=== PATIENT | male | born 1955 | race Caucasian/White ===

== ENCOUNTER 2023-11-17 10:36 | Emergency (ER) | payer MEDICARE, OTHER, SELFPAY ==
[2023-11-17 10:37] VITALS: BP 137/69; PULSE 74; RESP 14; TEMP 36.7; O2SAT 97; BMI 24.3
--- NOTE | 2023-11-17 10:44 | DI.RAD.S_ITS ---
PROCEDURE: XR FOOT LT MIN 3V INDICATIONS: foot/ankle injury last night TECHNIQUE: 3 views of the foot were acquired. COMPARISON: None. FINDINGS: Bones: No fractures or dislocations. No suspicious bony lesions. Soft tissues: No tibiotalar joint effusion. Achilles tendon appears normal. IMPRESSION: No acute bony abnormality. Dictated by: Nesha Myers MD, PhD on 11/17/2023 at 12:03 Approved by: Nesha Myers MD, PhD on 11/17/2023 at 12:03
--- NOTE | 2023-11-17 10:44 | DI.RAD.S_ITS ---
PROCEDURE: XR ANKLE LT MIN 3V INDICATIONS: foot/ankle injury last night TECHNIQUE: 3 views of the ankle were acquired. COMPARISON: None. FINDINGS: Bones: No fractures or dislocations. Ankle mortise is normally aligned. No suspicious bony lesions. Plantar calcaneal bone spur. Soft tissues: No tibiotalar joint effusion. Achilles tendon appears normal. Soft tissue swelling is noted and ligamentous injury cannot be excluded. IMPRESSION: No acute bony abnormality or significant effusion. Dictated by: Nesha Myers MD, PhD on 11/17/2023 at 12:03 Approved by: Nesha Myers MD, PhD on 11/17/2023 at 12:04
[2023-11-17] MEDS: KETOROLAC 30 MG/ML VIAL IM (11:59)
--- NOTE | 2023-11-17 12:21 | ED_ITS ---
HPI - Extremity Injury (Lower) <Silvano Donovan PA-C - Last Filed: 11/17/23 12:40> General Chief Complaint: Extremity Injury, Lower Stated Complaint: twisted lt ankle stepped wrong Time Seen by Provider: 11/17/23 11:19 Source: patient Mode of arrival: Ambulatory History of Present Illness HPI Narrative: 68-year-old male with past medical history lower back pain with numbness to the left foot presents to the ED status post a left ankle injury sustained yesterday. Patient states that he has baseline numbness in the big toe and 2nd toe due to his lower back pain, however yesterday he did not realize that his foot had fallen asleep, his ankle twisted when he tried to stand up and bear weight on it. Patient states he has not been able to bear weight and walk on it due to the pain since then. No new numbness, tingling, weakness. Patient has some crutches that he brought with him for ambulation. Related Data Allergies Allergy/AdvReac Type Severity Reaction Status Date / Time No Known Drug Allergies Allergy Verified 11/17/23 10:45 Review of Systems <Silvano Donovan PA-C - Last Filed: 11/17/23 12:40> Constitutional Constitutional: Denies chills, Denies fatigue, Denies fever(s), Denies frequent falls, Denies lethargy and Denies weakness Eyes Eyes: Denies change in vision, Denies eye discharge, Denies irritation and Denies loss of vision ENT Ears, Nose, Mouth, and Throat: Denies change in voice, Denies dizziness, Denies neck pain, Denies sore throat and Denies throat swelling Cardiovascular Cardiovascular: Denies chest pain, Denies irregular heart rhythm, Denies lightheadedness, Denies palpitations, Denies dyspnea, Denies dyspnea on exertion and Denies orthopnea Respiratory Respiratory: Denies cough, Denies dyspnea, Denies dyspnea on exertion and Denies wheezing Gastrointestinal Gastrointestinal: Denies abdominal pain, Denies change in bowel habits, Denies diarrhea, Denies nausea and Denies vomiting Musculoskeletal Musculoskeletal: Denies neck pain and Denies numbness Comments: Left ankle pain, swelling, bruising Integumentary/Breasts Skin/Breast: Denies pruritus, Denies erythema, Denies rash and Denies wounds Neurologic Neurologic: Denies behavioral changes, Denies confusion, Denies dizziness, Denies frequent falls, Denies loss of vision, Denies numbness and Denies weakness Psychiatric Psychiatric: Denies anxiety, Denies behavioral changes, Denies confusion, Denies depression, Denies homicidal ideation and Denies suicidal ideation Endocrine Endocrine: Denies fatigue, Denies flushing and Denies palpitations Hematologic/Lymphatic Hematologic/Lymphatic: Denies easy bruising Allergic/Immunologic Allergic/Immunologic: Denies urticaria, Denies throat swelling and Denies wheezing Patient History <Silvano Donovan PA-C - Last Filed: 11/17/23 12:40> Social History Smoking Status: Unknown if ever smoked Smoking Status: Unknown if ever smoked alcohol intake frequency: 0-2 drinks per day Substance Use Type: does not use Exam <Silvano Donovan PA-C - Last Filed: 11/17/23 12:40> Narrative Exam Narrative: Const General:?cooperative, healthy appearing and comfortable [facility] Head:?normal to inspection Ears:?hearing grossly normal bilaterally Nose:?external nose normal Face and sinus:?normal facial exam and sinuses nontender Mouth:?oral mucosae normal Throat:?posterior oropharynx normal Eyes General:?appearance normal, both eyes and all related structures Neck Neck:?normal visual inspection and no lymphadenopathy noted Resp Effort & Inspection:?normal respiratory effort Auscultation:?clear to auscultation bilaterally Cardio Rate:?regular rate Rhythm:?regular rhythm Musculoskeletal There is swelling, tenderness to palpation of the lateral left malleolar region. Dependent bruising noted. Neurovascularly intact. Patient is not able to bear weight and walk on that foot due to the pain. Neuro General:?patient alert, patient awake and patient oriented x3 Initial Vital Signs Initial Vital Signs: Vital Signs Temperature 98.0 F 11/17/23 10:37 Pulse Rate 74 11/17/23 10:37 Respiratory Rate 14 11/17/23 10:37 Blood Pressure 137/69 11/17/23 10:37 Pulse Oximetry 97 11/17/23 10:37 Oxygen Delivery Method Room Air 11/17/23 10:37 <Soraya Allen DO - Last Filed: 11/18/23 08:39> Initial Vital Signs Initial Vital Signs: Vital Signs Temperature 98.0 F 11/17/23 10:37 Pulse Rate 74 11/17/23 10:37 Respiratory Rate 14 11/17/23 10:37 Blood Pressure 137/69 11/17/23 10:37 Pulse Oximetry 97 11/17/23 10:37 Oxygen Delivery Method Room Air 11/17/23 10:37 Course <Silvano Donovan PA-C - Last Filed: 11/17/23 12:40> Orders Ordered: Discontinued Medications Ketorolac Tromethamine (Ketorolac 30 Mg/Ml Vial) 30 mg IM NOW ONE Stop: 11/17/23 11:51 Last Admin: 11/17/23 11:59 Dose: 30 mg Documented By: ALVIN Vital Signs Vital signs: Vital Signs - 8 hr 11/17/23 10:37 11/17/23 12:29 Temperature 98.0 F Pulse Rate 74 55 L Respiratory Rate 14 16 Blood Pressure 137/69 116/63 Pulse Oximetry 97 96 Oxygen Delivery Method Room Air Room Air <Soraya Allen DO - Last Filed: 11/18/23 08:39> Orders Ordered: Discontinued Medications Ketorolac Tromethamine (Ketorolac 30 Mg/Ml Vial) 30 mg IM NOW ONE Stop: 11/17/23 11:51 Last Admin: 11/17/23 11:59 Dose: 30 mg Documented By: ALVIN Vital Signs Vital signs: Vital Signs - 8 hr 11/17/23 10:37 11/17/23 12:29 Temperature 98.0 F Pulse Rate 74 55 L Respiratory Rate 14 16 Blood Pressure 137/69 116/63 Pulse Oximetry 97 96 Oxygen Delivery Method Room Air Room Air MDM - Extremity Injury (Lower) <Silvano Donovan PA-C - Last Filed: 11/17/23 12:40> MDM Narrative Medical decision making narrative: 68-year-old male with past medical history lower back pain with numbness to the left foot presents to the ED status post a left ankle injury sustained yesterday. Concern for fracture/dislocation versus musculoskeletal sprain/strain versus other. Obtained x-ray which was without acute findings. Discussed findings with patient that his symptoms are most consistent with a musculoskeletal sprain/strain. Fidel wrapped the ankle. Recommend RICE. Recommend ibuprofen. ED return precautions discussed with patient. Patient verbalized understanding. Medical records reviewed: Yes. Discharge Plan Departure Patient Disposition: Home Clinical Impression: Ankle sprain and strain Instructions: DI for Ankle Sprain Activity Restrictions/Additional Instructions: You were evaluated in the ED today for an ankle injury. Your x-rays did not show any fractures or dislocations. It appears that your symptoms are due to a soft tissue injury or musculoskeletal sprain/strain. Your ankle has been Fidel wrapped which you may continue to do at home as your ankle heals. You were given a injection of Toradol in the ED today for pain and swelling. You may continue to take 600-800 mg of ibuprofen every 8 hours with food for pain and swelling. Keeping your foot elevated will also be helpful. You may use crutches to get around until you are able to satisfactorily bear any weight on the foot and walk. Please follow-up with your PCP as soon as possible. Return to the ED via worsening symptoms, worsening numbness, tingling, weakness. Stand Alone Forms: Patient Portal/API ED Sign-out <Soraya Allen DO - Last Filed: 11/18/23 08:39> Cosign ED Attending Cosignature Attestation: I was available for consultation.
[2023-11-17 12:29] VITALS: BP 116/63; PULSE 55; RESP 16; O2SAT 96
== END 2023-11-17 12:35 | disposition home or self-care (01) ==
PROVIDERS: Emergency Provider Student in an Organized Health Care Education/Training Program
DX: S93.402A Sprain of unspecified ligament of left ankle, initial encounter (principal); S96.912A Strain of unspecified muscle and tendon at ankle and foot level, left foot, initial encounter; X50.1XXA Overexertion from prolonged static or awkward postures, initial encounter
CPT/HCPCS: 73610; 73630; 96372; 99283; J1885